=== PATIENT | female | born 1965 | race African-American/Black ===

== ENCOUNTER 2016-08-17 16:21 | Emergency (ER) | payer OTHER ==
[~2016-08-17] VITALS: Ht 167.6 cm; Wt 72.6 kg
[~2016-08-17 16:21] MED LIST: PERCOCET 325 MG1 TA2 PO
[2016-08-17] MEDS ORDERED: BUPROPION XL300 M1 PO (16:31)
[2016-08-17] MEDS ORDERED: GABAPENTIN300 M2 PO (16:32)
[2016-08-17] MEDS ORDERED: ZYPREXA2.5 M1 PO (16:32)
[2016-08-17] MEDS ORDERED: TRAZODONE HCL150 M1 PO (16:33)
[2016-08-17] MEDS ORDERED: IBUPROFEN800 M1 PO (16:34)
--- NOTE | 2016-08-17 17:03 | ED PSYCHIATRIC COMPLAINT ---
See Addendum History of Present Illness General Chief Complaint: General Adult Stated Complaint: ANXIETY S/P BAD NEWS Source: patient, family Exam Limitations: EMOTIONALLY DISTRAUGHT Vital Signs & Intake/Output Vital Signs & Intake/Output Vital Signs Date Time Temp Pulse Resp B/P Pulse O2 O2 Flow FiO2 Ox Delivery Rate 08/17 1623 98.6 112 18 136/87 98 Room Air Allergies Coded Allergies: NO KNOWN ALLERGIES (12/20/15) Reconcile Medications Bupropion HCl (Bupropion XL) 300 MG TAB.ER.24H 1 TAB PO DAILY MENTAL HEALTH ( Reported) Gabapentin 300 MG CAPSULE 2 CAP PO TID MENTAL HEALTH (Reported) Ibuprofen 800 MG TABLET 1 TAB PO PRN PAIN/INFLAMMATION (Reported) Olanzapine (Zyprexa) 2.5 MG TABLET 1 TAB PO BID MENTAL HEALTH (Reported) OXYCODONE HCL/ACETAMINOPHEN (Percocet 5-325 MG Tablet) 325 MG/5 MG TAB 1-2 TAB PO Q4-6 PRN PRN PAIN Trazodone HCl 150 MG TABLET 1-2 TAB PO QPM SLEEP (Reported) Triage Note: 51 YO FEMALE BIBA FROM HOME, PT JUST RECICVED THE NEWS THAT HER BOYFRIEND COMMITED SUIDICE. PT ARRIVES CRYING, SISTER AT BEDSIDE. EMOTIONAL SUPPORT PROVIDED TO PT. PT HERE TO SPEAK WITH SOMEONE. PT DENIES SI/HI. DENIES DRUG/ALCOHOL USE. PT COOPERATIVE. Triage Nurses Notes Reviewed? yes HPI: Patient presents for evaluation of extreme emotional distress secondary to her boyfriend committing suicide earlier today. The patient states she is unable to speak and is overcome with grief. I have obtained history via her sisters. Seems to be no thoughts of suicide on the part of the patient. When asked if she feels the need to speak to crisis she responded "I can't speak now". Past History Travel History Traveled to [place] past 21 day No Medical History Any Pertinent Medical History? see below for history Neurological: NONE EENT: NONE Cardiovascular: NONE Respiratory: NONE Gastrointestinal: NONE Hepatic: NONE Renal: NONE Musculoskeletal: NONE Psychiatric: anxiety, depression Endocrine: NONE Blood Disorders: NONE Cancer(s): NONE ACCOUNTS PAYABLE PROFESSIONAL/Reproductive: NONE Surgical History Surgical History: non-contributory Psychosocial History What is your primary language [place] Island[place] Tobacco Use: Never used Family History Hx Contributory? No Review of Systems Review of Systems Constitutional: Reports: no symptoms. EENTM: Reports: no symptoms. Respiratory: Reports: no symptoms. Cardiovascular: Reports: no symptoms. GI: Reports: no symptoms. Genitourinary: Reports: no symptoms. Musculoskeletal: Reports: no symptoms. Skin: Reports: no symptoms. Neurological/Psychological: Reports: see HPI. Hematologic/Endocrine: Reports: no symptoms. Immunologic/Allergic: Reports: no symptoms. All Other Systems: Reviewed and Negative Physical Exam Physical Exam General Appearance: see below Neurological/Psychiatric: see below Comments: Gen.: Well-nourished, well-developed, no acute respiratory distress. Head: Normocephalic, atraumatic. Eyes: Normal inspection bilaterally Ears: Normal inspection bilaterally Nose: Normal inspection Throat/mouth : Moist mucosa Neck: Supple, full range of motion, no goiter Heart: Regular rate and rhythm, no murmurs rubs or gallops Lungs: Clear to auscultation bilaterally with normal air entry Chest: Nontender Back: Normal range of motion Abdomen: Soft, nontender, nondistended, normal bowel sounds Extremities: Normal range of motion grossly, equal radial pulses, no cyanosis clubbing or edema Neurologic: Cranial nerves grossly intact, speech is clear Skin: warm and dry Psychiatric: Depressed affect with weeping, no apparent delusions or hallucinations but exam is limited secondary to the patient's reluctance to provide history SAD PERSONS Done? patient not suicidal Progress Differential Diagnosis: DEPRESSION, GRIEF Plan of Care: Orders Procedure Date/time Status ED CRISIS PSYCH CONSULT 08/17 1809 Active Current Medications Sig/Iona Start time Last Medication Dose Stop Time Status Admin Bupropion HCl 300 MG ONCE ONE 08/17 1714 CAN (Wellbutrin) 08/17 1716 Comments: Patient appears to be too distraught at this time to provide a meaningful evaluation for crisis. I have ordered her usual medications along with Ativan to help calm her. I will reevaluate and reassess regarding crisis evaluation. 08/17/2016 6:09:45 PM patient is feeling more calm and appears clinically more sedate. She again denies suicidal ideation. She sees a counselor at [facility]. However she does feel she would benefit from speaking with one of the crisis clinicians. 08/17/2016 6:40:40 PM patient is requesting to leave. Although she initially felt it might be helpful to speak with crisis, she no longer feels the need to do this. She has multiple family members present in the emergency department representing strong family support and I feel she will be stable for outpatient management via [facility]. Departure Departure Disposition: HOME OR SELF CARE Condition: Stable Clinical Impression Primary Impression: Grief reaction Referrals: GUILLERMINA BOURNE APRN (PCP/Family) Additional Instructions: Follow-up with [facility] as soon as possible for reevaluation. Notify your primary care doctor of this emergency department visit and treatment plan. Return if any concerns or sudden worsening. Departure Forms: Customer Survey General Discharge Information
[2016-08-17 18:47] VITALS: BP 126/84
== END 2016-08-17 18:48 ==
LOC: ERH 16:21
DX: F43.20 Adjustment disorder, unspecified (principal)